=== PATIENT | male | born 1995 | race Caucasian/White ===

== ENCOUNTER 2019-02-02 13:06 | Outpatient (CLI) | payer OTHER ==
[2019-02-02 16:11] LABS: eGFR (Non-African) > 60
[2019-02-02 16:12] LABS: HDL 43 mg/dL (>40)
== END 2019-02-02 13:11 ==
LOC: LAB 13:06
PROVIDERS: ATTEND Family Medicine
DX: Z00.00 Encounter for general adult medical examination without abnormal findings (principal)
CPT/HCPCS: 36415; 80048; 80061